=== PATIENT | male | born 1980 | race African-American/Black ===

== ENCOUNTER 2024-09-08 15:13 | Emergency (ER) | payer MEDICAID ==
[~2024-09-08] VITALS: Ht 177.8 cm; Wt 65.0 kg
[2024-09-08 15:18] VITALS: O2SAT 98
[2024-09-08] MEDS ORDERED: AMLODIPINE 10MG TABLET PO ONE (17:45)
[2024-09-08] MEDS: IBUPROFEN 600MG TABLET PO ONE (19:09)
[2024-09-08] MEDS: AMLODIPINE 5MG TABLET PO NR (19:10)
[2024-09-08 19:11] VITALS: BP 131/87; PULSE 80; RESP 16; TEMP 36.8; O2SAT 98
== END 2024-09-08 20:46 | disposition home or self-care (01) ==
LOC: ER 15:13
DX: J06.9 Acute upper respiratory infection, unspecified (principal); I10 Essential (primary) hypertension; Z79.899 Other long term (current) drug therapy
CPT/HCPCS: 99281